=== PATIENT | female | born 1970 | race Asian ===

== ENCOUNTER 2019-12-25 14:44 | Emergency (ER) | payer OTHER ==
[~2019-12-25] VITALS: Ht 152.4 cm; Wt 65.8 kg
[2019-12-25 15:04] VITALS: BP 157/93
== END 2019-12-25 15:40 | disposition home or self-care (01) ==
LOC: ER 14:53
DX: Z11.59 Encounter for screening for other viral diseases (principal)
CPT/HCPCS: 99283; C9803; U0003

== ENCOUNTER 2020-02-05 12:45 | Emergency (ER) | payer OTHER ==
[~2020-02-05] VITALS: Ht 152.4 cm; Wt 63.5 kg
[2020-02-05 12:50] VITALS: BP 135/81
--- NOTE | 2020-02-05 13:10 | NUR ---
covid 19 swab collected and sent to lab
--- NOTE | 2020-02-05 13:11 | NUR ---
Patient discharged to home in stable condition. Written and verbal after care instructions given. Patient verbalizes understanding of instruction.
== END 2020-02-05 13:11 | disposition home or self-care (01) ==
LOC: ER 12:45
DX: Z03.818 Encounter for observation for suspected exposure to other biological agents ruled out (principal)
CPT/HCPCS: 99283; C9803; U0003

== ENCOUNTER 2020-02-26 15:28 | Emergency (ER) | payer OTHER ==
[~2020-02-26] VITALS: Ht 149.9 cm; Wt 65.8 kg
[2020-02-26 15:42] VITALS: BP 126/68
--- NOTE | 2020-02-26 15:59 | NUR ---
COVID SWAB SENT
== END 2020-02-26 16:00 | disposition home or self-care (01) ==
LOC: ER 15:28
DX: Z20.828 Contact with and (suspected) exposure to other viral communicable diseases (principal)
CPT/HCPCS: 99283; C9803; U0003

== ENCOUNTER 2020-03-01 09:37 | Emergency (ER) | payer OTHER ==
[~2020-03-01] VITALS: Ht 149.9 cm; Wt 56.7 kg
[2020-03-01 09:43] VITALS: BP 115/68
== END 2020-03-01 10:02 | disposition home or self-care (01) ==
LOC: ER 09:38
DX: Z20.828 Contact with and (suspected) exposure to other viral communicable diseases (principal)
CPT/HCPCS: 99283; C9803; U0003

== ENCOUNTER 2020-03-27 11:13 | Emergency (ER) | payer OTHER ==
[~2020-03-27] VITALS: Ht 152.4 cm; Wt 65.8 kg
[2020-03-27 11:20] VITALS: BP 135/77
== END 2020-03-27 12:41 | disposition home or self-care (01) ==
LOC: ER 11:13
DX: Z20.828 Contact with and (suspected) exposure to other viral communicable diseases (principal); R03.0 Elevated blood-pressure reading, without diagnosis of hypertension
CPT/HCPCS: 99283; C9803; U0003

== ENCOUNTER 2020-04-01 07:32 | Emergency (ER) | payer OTHER ==
[~2020-04-01] VITALS: Ht 149.9 cm; Wt 68.0 kg
[2020-04-01 07:42] VITALS: BP 122/74
== END 2020-04-01 08:22 | disposition home or self-care (01) ==
LOC: ER 07:34
DX: Z20.828 Contact with and (suspected) exposure to other viral communicable diseases (principal)
CPT/HCPCS: 99283; C9803; U0003